=== PATIENT | male | born 1975 | race Two or more races ===

== ENCOUNTER 2019-11-25 07:08 | Observation (INO) | payer MEDICAID, OTHER ==
[~2019-11-25] VITALS: Ht 180.3 cm; Wt 112.0 kg
[2019-11-25] MEDS ORDERED: ASPIRIN 81 MG TABLET CHEW PO ONE (07:30)
[2019-11-25] MEDS ORDERED: SODIUM CHLORIDE FLUSH 10ML SYR IVF ONE (07:30)
[2019-11-25] MEDS ORDERED: ASPIRIN 81 MG TABLET CHEW ONE (07:33)
[2019-11-25 07:50] LABS: BASOPHILS # (AUTO) 0.02 x10^3/uL (0-0.1); BASOPHILS % (AUTO) 0 % (0-1); EOSINOPHILS # (AUTO) 0.07 x10^3/uL (0-0.4); EOSINOPHILS % (AUTO) 1 % (1-7); LYMPHOCYTES # (AUTO) 2.01 x10^3/uL (1-3.4); LYMPHOCYTES % (AUTO) 32 % (22-44); MD NO; MEAN CORPUSCULAR HEMOGLOBIN 28.3 pg (27.5-34.5); MEAN CORPUSCULAR HGB CONC 32.9 g/dL (33.2-36.2); MEAN PLATELET VOLUME 8.8 fL (7.4-10.4); MONOCYTES # (AUTO) 0.46 x10^3/uL (0.2-0.8); MONOCYTES % (AUTO) 7 % (2-9); NEUTROPHILS # (AUTO) 3.71 x10^3/uL (1.8-6.8); NEUTROPHILS % (AUTO) 59 % (42-75); PLATELET COUNT 262 x10^3/uL (130-400); RED BLOOD COUNT 5.55 x10^6/uL (4.38-5.82); RED CELL DISTRIBUTION WIDTH 13.4 % (9.4-14.8)
[2019-11-25 08:01] LABS: ANION GAP 8 mmol/L (5-15); CALCIUM 9.2 mg/dL (8.5-10.1); CHLORIDE 105 mmol/L (98-107); CREATININE 0.82 mg/dL (0.7-1.3)
--- NOTE | 2019-11-25 08:02 | NUR ---
PT SITTING IN BED CALMLY WITH AT BEDSIDE. PT DENIES ANY PAIN AT THIS TIME. NAD, VSS. CALL LIGHT WITHIN REACH, COMFORT MEASURES GIVEN.
[2019-11-25 08:05] LABS: ALANINE AMINOTRANSFERASE 48 U/L (12-78); ALKALINE PHOSPHATASE 73 U/L (45-117); TROPONIN I < 0.015 ng/mL (0.000-0.045)
[2019-11-25 08:12] LABS: BILIRUBIN,TOTAL 0.2 mg/dL (0.2-1.0)
[2019-11-25] MEDS ORDERED: NITROGLYCERIN SINGLE TAB 0.4 MG SL PRN (08:30)
--- NOTE | 2019-11-25 09:05 | NUR ---
PT SITTING IN BED WATCHING TV AND ABLE TO DOZE OFF, AT BEDSIDE. BLANKET PROVIDED, CALL LIGHT WITHIN REACH, NO ADDTIONAL NEEDS AT THIS TIME.
--- NOTE | 2019-11-25 10:07 | NUR ---
HOSPITALIST AT BEDSIDE. PT SITTING ON [facility]. AT BEDSIDE. PT STATES PAIN HAS REMAINED CONSTANT, 05/13. CALL LIGHT WITHIN REACH. WILL CONTINUE TO MONITOR.
--- NOTE | 2019-11-25 10:23 | NUR ---
Pt to be admitted to [facility], room 511-1. Report called to DINH FALK.
[2019-11-25 10:43] LABS: TROPONIN I < 0.015 ng/mL (0.000-0.045)
[2019-11-25 10:47] VITALS: BP 154/84
[2019-11-25] MEDS ORDERED: DOCUSATE 100 MG CAPSULE PO PRN (11:00)
[2019-11-25] MEDS ORDERED: NITROGLYCERIN 0.4 MG BOTTLE (25 TABS) SL PRN ×2 (11:00)
[2019-11-25] MEDS ORDERED: morphine SULFATE 10 MG/ML, 1ML IV PRN (11:00)
[2019-11-25] MEDS ORDERED: ENOXAPARIN 40 MG/0.4 ML SQ SCH (11:00)
[2019-11-25] MEDS ORDERED: LABETALOL 5MG/ML, 20ML IVPush PRN (11:00)
[2019-11-25] MEDS ORDERED: ONDANSETRON 2MG/ML, 2ML IVPush PRN (11:00)
[2019-11-25] MEDS ORDERED: ZOLPIDEM 5MG TABLET PO PRN (11:00)
[2019-11-25] MEDS ORDERED: ACETAMINOPHEN 325 MG TABLET PO PRN ×2 (11:00)
[2019-11-25] MEDS ORDERED: ASPIRIN 325 MG TABLET EC PO ONE (11:00)
[2019-11-25] MEDS ORDERED: BISACODYL 10 MG SUPP PR PRN (11:00)
[2019-11-25] MEDS ORDERED: morphine SULFATE 10 MG/ML, 1ML IVPush PRN (11:00)
[2019-11-25] MEDS ORDERED: ONDANSETRON ODT 4 MG PO PRN (11:00)
[2019-11-25] MEDS ORDERED: NITROGLYCERIN 0.4 MG/SPRAY SL PRN (11:00)
[2019-11-25] MEDS ORDERED: LORazepam 0.5MG TABLET PO PRN (11:00)
[2019-11-25 11:08] LABS: CHOL/HDL RATIO 4.7; LDL/HDL RATIO 3.1 (0.5-3.0)
[2019-11-25] MEDS: LACTATED RINGERS 1,000 ML IV SCH (11:35)
[2019-11-25 11:39] LABS: MICROSCOPIC NOT IND
[2019-11-25] MEDS: FAMOTIDINE 20 MG TABLET PO SCH ×2 (13:05→21:18)
[2019-11-25 13:52] VITALS: BP 135/84
[2019-11-25 14:28] LABS: TROPONIN I < 0.015 ng/mL (0.000-0.045)
[2019-11-25] MEDS ORDERED: OMNIPAQUE 350 MG/ML, 100ML BOTTLE ONE (16:13)
[2019-11-25] MEDS: METOPROLOL TARTRATE 25 MG TAB PO SCH (17:24)
[2019-11-25 20:08] VITALS: BP 120/71
[2019-11-25] MEDS: SODIUM CHLORIDE FLUSH 10ML SYR IVF SCH (21:00)
[2019-11-26] MEDS: LACTATED RINGERS 1,000 ML IV SCH (00:09)
[2019-11-26 00:48] VITALS: BP 99/63
[2019-11-26 05:21] LABS: MEAN CORPUSCULAR HEMOGLOBIN 28.2 pg (27.5-34.5); MEAN CORPUSCULAR HGB CONC 32.3 g/dL (33.2-36.2); MEAN PLATELET VOLUME 8.9 fL (7.4-10.4); PLATELET COUNT 249 x10^3/uL (130-400); RED BLOOD COUNT 5.38 x10^6/uL (4.38-5.82); RED CELL DISTRIBUTION WIDTH 13.6 % (9.4-14.8)
[2019-11-26 05:27] VITALS: BP 113/69
[2019-11-26] MEDS: METOPROLOL TARTRATE 25 MG TAB PO SCH (05:27)
[2019-11-26 05:33] LABS: CHLORIDE 107 mmol/L (98-107)
[2019-11-26 05:50] LABS: ALANINE AMINOTRANSFERASE 42 U/L (12-78); ALBUMIN 3.6 g/dL (3.4-5.0); ALKALINE PHOSPHATASE 70 U/L (45-117); ANION GAP 8 mmol/L (5-15); BILIRUBIN,TOTAL 0.7 mg/dL (0.2-1.0); CHOL/HDL RATIO 5.4; CHOLESTEROL, TOTAL 209 mg/dL (140-239); CREATININE 0.76 mg/dL (0.7-1.3); HDL CHOL % 19 % (26-37); HDL CHOLESTEROL (DIRECT) 39 mg/dL (40-60); LDL CHOLESTEROL,CALCULATED 128 mg/dL (54-169); LDL/HDL RATIO 3.3 (0.5-3.0); TOTAL PROTEIN 7.3 g/dL (6.4-8.2); TRIGLYCERIDES 209 mg/dL (50-200); VLDL CHOLESTEROL 42 mg/dL (0-25)
[2019-11-26] MEDS ORDERED: ASPIRIN 325 MG TABLET EC PO SCH (06:00)
[2019-11-26 07:20] VITALS: BP 132/73
[2019-11-26] MEDS: SODIUM CHLORIDE FLUSH 10ML SYR IVF SCH (08:29)
[2019-11-26] MEDS: FAMOTIDINE 20 MG TABLET PO SCH (08:29)
[2019-11-26] MEDS ORDERED: ACETAMINOPHEN 325 MG TABLET PO PRN (09:30)
[2019-11-26] MEDS ORDERED: MAALOX/HYOSCYAMINE/LIDOCAINE 45 ML BTL PO PRN (09:30)
[2019-11-26] MEDS ORDERED: HEPARIN 5,000 UNITS/ML, 1ML SQ SCH (10:00)
[2019-11-26] MEDS ORDERED: ACET325T26 PO (11:59)
[2019-11-26] MEDS ORDERED: ACID1TAB7 PO (11:59)
[2019-11-26 13:12] VITALS: BP 124/74
[2019-11-26] MEDS ORDERED: LACTOBACILLUS CHEW TABLET PO SCH (16:00)
[2019-11-26] MEDS ORDERED: ATORVASTATIN 40 MG TABLET PO SCH (21:00)
== END 2019-11-26 15:50 | disposition home or self-care (01) ==
LOC: ED 08:42 → INTOOBSV 10:15 → EDIP 10:15 → 5SO 10:38 → DCLOUNGE 11-26 15:48
PROVIDERS: ADMIT Internal Medicine; ATTEND Internal Medicine
DX: R07.89 Other chest pain (principal); I10 Essential (primary) hypertension; E78.5 Hyperlipidemia, unspecified; G89.29 Other chronic pain; M54.5 Low back pain; F41.9 Anxiety disorder, unspecified; G47.00 Insomnia, unspecified; E66.9 Obesity, unspecified; F10.10 Alcohol abuse, uncomplicated; Z98.1 Arthrodesis status; Z79.899 Other long term (current) drug therapy; Z87.891 Personal history of nicotine dependence
CPT/HCPCS: 36415; 71046; 71275; 78452; 80053; 80061; 81003; 83735; 84443; 84484; 85025; 85027; 93005; 93017; 96361; 96372; 96374; 99285; A9502; C9898; G0378; J1644; J1650; J2270; J7120; Q9967

== ENCOUNTER 2020-08-12 06:19 | Emergency (ER) | payer OTHER ==
[~2020-08-12] VITALS: Ht 181.6 cm; Wt 118.2 kg
[~2020-08-12 06:19] MED LIST: ACET325T26 PO; ACID1TAB7 PO
--- NOTE | 2020-08-12 06:48 | NUR ---
REPORT RECEIVED FROM LARISSA FALK
[2020-08-12] MEDS ORDERED: IBUPROFEN 800 MG TABLET PO ONE (07:00)
[2020-08-12] MEDS ORDERED: IBUPROFEN 800 MG TABLET ONE (07:01)
--- NOTE | 2020-08-12 07:06 | NUR ---
MEDICATION GIVEN PER ORDER, PT TOLERATED WELL. PT A&O, RESPS EVEN AND UNLABORED, VSS, NADN, RESTING COMFORTABLY IN BED. CALL LIGHT IN REACH, NO COMPLAINTS AT THIS TIME.
--- NOTE | 2020-08-12 07:12 | NUR ---
PT TO XRAY
--- NOTE | 2020-08-12 07:29 | NUR ---
PT BACK FROM XRAY
--- NOTE | 2020-08-12 07:41 | NUR ---
PT STATES PAIN HAS IMPROVED AFTER MEDICATION ADMINISTRATION. PT RESTING IN BED, A&O, RESPS EVEN AND UNLABORED, VSS, NADN. CALL LIGHT IN REACH. XR RESULTED, CHART UP FOR RECHECK, AWAITING MD AND DISPO.
[2020-08-12 09:02] VITALS: BP 137/80
--- NOTE | 2020-08-12 09:03 | NUR ---
DISCHARGE INSTRUCTIONS REVIEWED, PT EDUCATED ON FOLLOW-UP AND RETURN CRITERIA, VERBALIZED UNDERSTANDING. PT A&O, RESPS EVEN AND UNLABORED, VSS. AMBULATORY TO DISCHARGE WITH STEADY GAIT, NO OCMPLAINTS AT TIME OF DISCHARGE.
== END 2020-08-12 09:05 | disposition home or self-care (01) ==
LOC: ED 06:38
DX: M25.561 Pain in right knee (principal); I10 Essential (primary) hypertension; Z87.891 Personal history of nicotine dependence
CPT/HCPCS: 99283